=== PATIENT | female | born 1995 | race Two or more races ===

== ENCOUNTER → 2019-01-01 | Outpatient (CLI) | payer SELFPAY ==
[2019-01-03 02:11] LABS: CHLAMYDIA TRACHOMATIS, NAA Negative (Negative); NEISSERIA GONORRHOEAE, NAA Negative (Negative)
== END | disposition home or self-care (01) ==
LOC: LAB SHORT 16:20 → LAB EV 16:20
PROVIDERS: Family Medicine
DX: N76.0 Acute vaginitis (principal); R35.0 Frequency of micturition
CPT/HCPCS: 87077; 87086; 87186